=== PATIENT | female | born 1960 | race Caucasian/White ===

== ENCOUNTER 2024-04-28 16:18 | Inpatient (IN) | payer BC ==
--- NOTE | 2024-04-28 18:14 | RAD REPORT ---
EXAM:Extremity Venous Uni Ltd HISTORY: Leg pain TECHNIQUE: Sonographic evaluation right lower extremity performed.Grayscale, color and spectral francisco sis performed on all vessels COMPARISON: None. FINDINGS: Echogenic material consistent with acute thrombus is present within the left greater saphenous left p opliteal veins. Diminished blood flow veins are partially compressible Left common femoral, superficial femoral, greater and posterior tibial veins are compressible and dem onstrate augmentation. Doppler demonstrates good flow. IMPRESSION: Acute thrombus left greater saphenous and left popliteal veins
[2024-04-28 19:22] LABS: Absolute Basophils 0.1 K/uL (0-0.5); Absolute Eosinophils 0.1 K/uL (0-0.5); Absolute Lymphocytes (CBC) 2.1 K/uL (0.7-4.9); Absolute Monocytes 0.5 K/uL (0.1-1.3); Absolute Neutrophil 4.6 K/uL (1.8-8.0); Basophils % 1.1 % (0-1.3); Eosinophils % 1.9 % (0-4.4); Hematocrit 41.8 % (36.0-45.0); Lymphocytes % 28.7 % (15.3-44.8); MCH 30.5 pg (27.0-35.0); MCHC 33.6 g/dL (32.0-36.0); MCV 90.8 fL (80-100); Neutrophils % 61.3 % (41.7-73.7); Nucleated Red Blood Cells % 0.1 % (0-0); PT Prothrombin Time 11.5 SECONDS (9.4-12.5); Platelets 200 thou/uL (152-406); Protime INR 1.03; Red Cell Distribution Width 13.4 % (12.1-15.2)
[2024-04-28 19:40] LABS: ALT/SGPT 22 U/L (13-56); AST/SGOT 17 U/L (15-37); Albumin 4.1 g/dL (3.4-5.0); Albumin/Globulin Ratio 1.2 (1.1-1.8); Alkaline Phosphatase 97 U/L (45-117); Anion Gap 6.8 mEq/L (5.0-15.0); BUN Blood Urea Nitrogen 12 mg/dL (7-18); Bicarbonate 28 mEq/L (21-32); Bilirubin Total 0.5 mg/dL (0.2-1.0); Globulin 3.5 g/dL (2.3-3.5); Glomerular Filtration Rate 77 ml/min (=/>90); Glucose Level 92 mg/dL (74-106); Potassium 3.8 mEq/L (3.5-5.1); Protein, Total 7.6 g/dL (6.4-8.2); Sodium Level 139 mEq/L (136-145)
[2024-04-28 19:41] LABS: Bilirubin Direct < 0.2 mg/dL (0-0.2); Bilirubin Indirect, Calculated 0.3 mg/dL (0.2-0.8)
[2024-04-28 19:43] LABS: Troponin High Sensitivity 162.7 pg/mL (<58.9)
--- NOTE | 2024-04-28 20:46 | RAD REPORT ---
EXAMINATION: CTA CHEST PE CLINICAL INDICATION: Chest pain TECHNIQUE: 100 cc 370 Isovue administered intravenously. This examination was performed according to an angiographic protocol with 3D post-processing. This involves 3D reconstructions, MIPs, volume rendered images and/or shaded surface rendering. One or more of the following dose reduction techniqu es were used: Automated exposure control, adjustment of the mA and/or kV according to patient size, and/or iterative reconstruction. Unless otherwise specified, incidental findings do not require dedic ated imaging follow-up. [id number]. COMPARISON: No prior exam. FINDINGS: Thrombus is present within right upper lobe, right middle lobe and right lower lobe pulmonary arterie s. No thrombus seen within main pulmonary, right and left main pulmonary arteries. Minimal thrombus left lower lobe pulmonary artery. An aortic dissection not noted. No pleural effusion. No pericardial effusion. Lungs are clear. IMPRESSION: Predominantly right pulmonary emboli
--- NOTE | 2024-04-28 21:09 | ER ---
Nurse's Notes [facility] Name: Mary Santana Age: 64 yrs Sex: Female : 1960 Arrival Date: 04/28/2024 Time: 16:18 Bed 10 Private MD: Diagnosis: Acute embolism and thrombosis of unspecified deep veins of left lower extremity;Pulmonary embolism without acute cor pulmonale;Elevated troponin Presentation: 04/28 16:59 Chief complaint: Patient states: L leg tender, pain, red streak going up it since ll1 yesterday. No fever. Coronavirus screen: Client denies travel out of the [place] in the last 14 days. At this time, the client does not indicate any symptoms associated with coronavirus-19. Ebola Screen: Patient denies travel to an Ebola-affected area in the 21 days before illness onset. Initial Sepsis Screen: Does the patient meet any 2 criteria? No. Patient's initial sepsis screen is negative. Does the patient have a suspected source of infection? No. Patient's initial sepsis screen is negative. Risk Assessment: Do you want to hurt yourself or someone else? Patient reports no desire to harm self or others. Onset of symptoms was April 27, 2024. 16:59 Method Of Arrival: Ambulatory ll1 16:59 Acuity: BIPIN 3 ll1 Triage Assessment: 16:59 General: Appears uncomfortable, Behavior is calm, cooperative, appropriate for age. ll1 Pain: Complains of pain in left leg. Derm: Reports red streak going up L leg. Musculoskeletal: Reports pain in left leg. Musculoskeletal:. Historical: - Allergies: 16:58 Macrobid; ll1 16:58 Erythromycin; ll1 16:58 Levaquin; ll1 - PMHx: 16:58 Asthma; Hypertensive disorder; ll1 - PSHx: 16:59 R knee surgery; ll1 - Immunization history:: Adult Immunizations up to date. - Infectious Disease History:: Denies. - Social history:: Smoking status: Patient denies any tobacco usage or history of. Screenin:50 [facility] ED Fall Risk Assessment (Adult) History of falling in the last 3 months, ar6 including since admission No falls in past 3 months (0 pts) Confusion or Disorientation No (0 pts) Intoxicated or Sedated No (0 pts) Impaired Gait No (0 pts) Mobility Assist Device Used No (0 pt) Altered Elimination No (0 pt) Score/Fall Risk Level 0 - 2 = Low Risk Oriented to surroundings, Maintained a safe environment, Educated pt \T\ family on fall prevention, incl call for assistance when getting out of bed, Hourly rounding (assess needs \T\ fall precautionary measures) done. Abuse screen: Denies threats or abuse. Denies injuries from another. Nutritional screening: No deficits noted. Tuberculosis screening: No symptoms or risk factors identified. Assessment: 18:50 General: Appears in no apparent distress. uncomfortable, Behavior is calm, cooperative, ar6 appropriate for age. Pain: Complains of pain in left leg. Neuro: Level of Consciousness is awake, alert, obeys commands, Oriented to person, place, time, situation. Cardiovascular: Capillary refill < 3 seconds. Respiratory: Airway is patent. GI: Abdomen is round non-distended. : No signs and/or symptoms were reported regarding the genitourinary system. EENT: Oral mucosa is moist. Derm: Skin is intact, is healthy with good turgor, Skin is dry, Skin is pink, warm \T\ dry. Musculoskeletal: Swelling left knee swelling. Vital Signs: 16:59 BP 159 / 90; Pulse 79; Resp 17; Temp 97; Pulse Ox 98% ; Weight 106.59 kg; Height 6 ft. ll1 0 in. ; Pain 7/10; 18:50 BP 182 / 90; Pulse 70; Resp 18; Pulse Ox 98% on R/A; Weight 106.59 kg; Height 6 ft. 0 ar6 in. ; 21:59 BP 154 / 84; Pulse 72; Resp 18; Pulse Ox 99% on R/A; ar6 22:36 BP 146 / 82; Pulse 76; Resp 18; Pulse Ox 99% on R/A; ar6 18:50 Body Mass Index 31.87 (106.59 kg, 182.88 cm) ar6 16:59 Pain Scale: Adult ll1 18:50 provider at bedside ar6 ED Course: 16:21 Patient arrived in ED. ra3 16:25 Arm band placed on. ll1 16:58 [facility]C [facility]. kb 16:58 Lloyd Guillaume MD is Attending Physician. kb 17:00 Triage completed. ll1 18:09 US Extremity Venous Unilateral Ltd In Process Unspecified. EDMS 18:26 Chandrika Shipley, RN is Primary Nurse. ar6 18:50 No apparent distress. ar6 18:50 Patient has correct armband on for positive identification. Bed in low position. Call ar6 light in reach. Side rails up X 1. Provided Education on: plan of care. Client placed on continuous cardiac and pulse oximetry monitoring. NIBP monitoring applied. Door closed. Lights dimmed. Moved to private room. Warm blanket given. 18:50 No provider procedures requiring assistance completed. ar6 19:20 EKG done, by ED staff, reviewed by Kayla HERRING. oe 20:15 CT Chest For PE Angio In Process Unspecified. EDMS 21:06 Ptt, Activated Sent. ar6 21:08 Marcela Perry MD is Hospitalizing Provider. kb 23:39 Inserted saline lock: 22 gauge in left antecubital area, using aseptic technique. Blood vk collected. Flushed with 10 mL NS. Administered Medications: 21:47 Drug: Heparin (DVT/PE- Bolus per protocol) - HEParin IVP 80 units/kg IVP once; Max lg3 8,000 units {Co-Signature: arIsabelle (Chandrika Shipley RN).} Route: IVP; Site: right antecubital; 23:15 Follow up: Response: No adverse reaction ar6 21:47 Drug: Heparin (DVT/PE Drip) 18 units/kg/[place] - ([place] [address] units, D5W IV 500 ml) IV lg3 at calculated rate Per protocol; Max initial rate 1800 units/hr {Co-Signature: albertina (Chandrika Shipley RN).} Route: IV; Rate: calculated rate; Site: right antecubital; 23:15 Follow up: Response: No adverse reaction; IV Status: Infusion continued ar6 Medication: 18:50 VIS not applicable for this client. ar6 Outcome: 21:08 Decision to Hospitalize by Provider. kb 23:51 Patient left the ED. ar6 Signatures: Dispatcher [employer] EDMS Kayla Andino FNP-C FNP-Deejay Rocha Lacie, RN RN lg3 Gilmer Reddy RN RN ll1 Sultana Sims ra3 Marycarmen Ty Amber, RN RN ar6 Shipley, Chandrika RN ar6
--- NOTE | 2024-04-28 21:09 | EDPHYS ---
Physician Documentation [facility] Name: Mary Santana Age: 64 yrs Sex: Female : 1960 Arrival Date: 04/28/2024 Time: 16:18 Bed 10 Private MD: ED Physician Lloyd Guillaume HPI: 04/28 17:30 This 64 yrs old Female presents to ER via Ambulatory with complaints of left leg kb tenderness with redness. 17:30 Pt is a 64 year old female who presents with soreness, redness and swelling to left kb lower extremity. States she has been traveling in a car a lot recently. Denies shortness of breath. States the symptoms started yesterday and have progressed since onset. . Historical: - Allergies: 16:58 Macrobid; ll1 16:58 Erythromycin; ll1 16:58 Levaquin; ll1 - PMHx: 16:58 Asthma; Hypertensive disorder; ll1 - PSHx: 16:59 R knee surgery; ll1 - Immunization history:: Adult Immunizations up to date. - Infectious Disease History:: Denies. - Social history:: Smoking status: Patient denies any tobacco usage or history of. ROS: 17:30 Constitutional: As per HPI kb Exam: 17:30 Constitutional: This is a well developed, well nourished patient who is awake, alert, kb and in no acute distress. Head/Face: Normocephalic, atraumatic. ENT: Moist Mucous membranes Cardiovascular: Regular rate Respiratory: Respirations even and unlabored. No increased work of breathing. Talking in full sentences Abdomen/GI: Soft, non-tender. No distention Skin: Warm, dry with normal turgor. Normal color. Neuro: Awake and alert, GCS 15, oriented to person, place, time, and situation. 19:20 ECG was reviewed by the Attending Physician. kb Vital Signs: 16:59 BP 159 / 90; Pulse 79; Resp 17; Temp 97; Pulse Ox 98% ; Weight 106.59 kg; Height 6 ft. ll1 0 in. ; Pain 7/10; 18:50 BP 182 / 90; Pulse 70; Resp 18; Pulse Ox 98% on R/A; Weight 106.59 kg; Height 6 ft. 0 ar6 in. ; 21:59 BP 154 / 84; Pulse 72; Resp 18; Pulse Ox 99% on R/A; ar6 22:36 BP 146 / 82; Pulse 76; Resp 18; Pulse Ox 99% on R/A; ar6 18:50 Body Mass Index 31.87 (106.59 kg, 182.88 cm) ar6 16:59 Pain Scale: Adult ll1 18:50 provider at bedside ar6 MDM: 16:58 Medical Screening Exam initiated kb 17:31 Differential diagnosis: cellulitis, dvt, abscess, bakers cyst. Data reviewed: vital kb signs, nurses notes. 21:07 Consideration of Admission/Observation Patient was admitted/placed on observation. kb Escalation of care including admission/observation considered. Management of patient was discussed with the following: Hospitalist: Leandra HEEL ATTACHER accepts pt for admission. Counseling: I had a detailed discussion with the patient and/or guardian regarding the historical points, exam findings, and any diagnostic results supporting the discharge/admit diagnosis, lab results, radiology results, the need for further work-up and treatment in the hospital. 04/28 18:33 Order name: Basic Metabolic Panel; Complete Time: 19:50 kb 04/28 18:33 Order name: CBC with Diff; Complete Time: 19:26 kb 04/28 18:33 Order name: LFT's; Complete Time: 19:50 kb 04/28 18:33 Order name: PT-INR; Complete Time: 19:25 kb 04/28 18:33 Order name: Troponin HS; Complete Time: 19:50 kb 04/28 21:04 Order name: Ptt, Activated; Complete Time: 21:19 kb 04/28 23:08 Order name: CBC with Automated Diff EDMS 04/28 23:08 Order name: Comprehensive Metabolic Panel EDMS 04/28 23:08 Order name: Magnesium EDMS 04/28 23:08 Order name: Lipid Profile EDMS 04/28 23:08 Order name: Lipid Profile EDMS 04/28 23:08 Order name: Troponin High Sensitivity EDMS 04/28 23:08 Order name: Troponin High Sensitivity EDMS 04/28 23:08 Order name: Troponin High Sensitivity EDMS 04/28 23:08 Order name: Troponin High Sensitivity EDMS 04/28 17:02 Order name: US Extremity Venous Unilateral Ltd; Complete Time: 18:15 kb 04/28 18:33 Order name: CT Chest For PE Angio; Complete Time: 20:47 kb 04/28 23:09 Order name: Echo with Doppler EDMS 04/28 23:03 Order name: CONS Physician Consult EDMS 04/28 18:33 Order name: Cardiac monitoring; Complete Time: 18:50 kb 04/28 18:33 Order name: EKG - Nurse/Tech; Complete Time: 19:15 kb 04/28 18:33 Order name: IV Saline Lock; Complete Time: 18:50 kb 04/28 18:33 Order name: Labs collected and sent; Complete Time: 18:50 kb 04/28 18:33 Order name: O2 Sat Monitoring; Complete Time: 18:50 kb EC:20 Rate is 57 beats/min. Rhythm is regular. QRS [place] is Normal. [place] interval is normal at kb 166 msec. QRS interval is normal at 90 msec. QT interval is normal at 439 msec. Administered Medications: 21:47 Drug: Heparin (DVT/PE- Bolus per protocol) - HEParin IVP 80 units/kg IVP once; Max lg3 8,000 units {Co-Signature: albertina (Chandrika Shipley RN).} Route: IVP; Site: right antecubital; 23:15 Follow up: Response: No adverse reaction ar6 21:47 Drug: Heparin (DVT/PE Drip) 18 units/kg/[place] - ([place] [address] units, D5W IV 500 ml) IV lg3 at calculated rate Per protocol; Max initial rate 1800 units/hr {Co-Signature: arIsabelle (Chandrika Shipley RN).} Route: IV; Rate: calculated rate; Site: right antecubital; 23:15 Follow up: Response: No adverse reaction; IV Status: Infusion continued ar6 Disposition Summary: 04/28/24 21:08 Hospitalization Ordered Notes: Hospitalization Status: Observation kb Provider: Marcela Perry Location: Telemetry/MedSurg (observation) kb Condition: Stable kb Problem: new kb Symptoms: are unchanged kb Bed/Room Type: Standard Room Assignment: 411(04/28/24 22:34) lg3 Diagnosis - Acute embolism and thrombosis of unspecified deep veins of left lower extremity kb - Pulmonary embolism without acute cor pulmonale kb - Elevated troponin kb Forms: - Medication Reconciliation Form kb - SBAR form kb - Leadership Thank You Letter kb Addendum: 05/02/2024 19:57 Co-signature as Attending Physician, Lloyd Guillaume MD I reviewed the patient's care r t provided by the Advanced Practice Provider and agree with the diagnosis and treatment plan. Signatures: Dispatcher [employer] EDKayla Dunaway, COMPUTER PATTERNMAKER-C COMPUTER PATTERNMAKER-CkNuris Purcell, RN RN lg3 Gilmer Reddy, RN RN ll1 Lloyd Guillaume MD MD rt Chandrika Shipley RN RN ar6 Chandrika Shipley RN ar6 Corrections: (The following items were deleted from the chart) 04/28 18:33 18:33 BASIC METABOLIC PANEL+C.LAB.BRZ ordered. EDMS EDMS 18:33 18:33 CBC+H.LAB.BRZ ordered. EDMS EDMS 18:33 18:33 HEPATIC FUNCTION+C.LAB.BRZ ordered. EDMS EDMS 18:33 18:33 PROTIME (+INR)+COAG.LAB.BRZ ordered. EDMS EDMS 18:33 18:33 Troponin High Sensitivity+C.LAB.BRZ ordered. EDMS EDMS 22:34 21:08 kb lg3
[2024-04-28] MEDS ORDERED: HEPARIN 5000 UNIT/ML 1 ML VIAL ONE (21:17)
[2024-04-28] MEDS ORDERED: HEPARIN/D5W 25,000 UNIT/500 ML BAG IV ONE (21:18)
[2024-04-28] MEDS ORDERED: ACETAMINOPHEN 500 MG TAB PO PRN (23:02)
[2024-04-28] MEDS ORDERED: ONDANSETRON 4 MG/2 ML VIAL IV PRN (23:02)
[2024-04-28] MEDS ORDERED: MORPHINE 2 MG/ML SYR IV PRN (23:11)
--- NOTE | 2024-04-28 23:51 | P.HP ---
Certification for Inpatient Patient admitted to: Inpatient With expected LOS: <2 Midnights <Sarah Mobley - Last Filed: 04/29/24 07:27> Patient History Date of Service: 04/29/24 Reason for admission: Pulmonary embolism, left lower extremity DVT History of Present Illness: 64-year-old female with a past medical history hypertension, asthma, presents to the emergency room with left lower extremity pain. Reports left lower extremity edema, she reports driving in the car over 6 hours, she denies injury, no reported fall, no reported chest pain, shortness of breath, abdominal pain, ER evaluation cells left lower extremity DVT, CT of the chest Predominantly right pulmonary emboli, CT discussed with radiology, no reported right heart strain, admission discussed with Dr. Perry prior, plan to admit to ICU on a heparin drip, for NSTEMI, PE, left lower extremity DVT with cardiology consult. Laboratory evaluation troponin 162.7, 165.3 no leukocytosis, - Past Medical/Surgical History -: Hypertension -: Asthma -: Right knee surgery - Social History Smoking Status: Never smoker Alcohol use: No CD- Drugs: No Caffeine use: Yes Place of Residence: Home <Sarah Mobley - Last Filed: 04/29/24 07:27> Date of Service: 04/30/24 <Marcela Perry - Last Filed: 04/30/24 10:28> Allergies erythromycin base Allergy (Verified 04/29/24 01:04) Nausea/Vomiting levofloxacin [From Levaquin] Allergy (Verified 04/29/24 01:04) Itching/Hives/Rash nitrofurantoin [From Macrobid] Adverse Reaction (Verified 04/29/24 01:04) Nausea/Vomiting Home Medications: Amlodipine Besylate [Norvasc] 5 mg PO BEDTIME 04/29/24 Hydroxychloroquine [Plaquenil] 200 mg PO DAILY 04/29/24 Magnesium Oxide [Mag 0X Tab] 400 mg PO BID 04/29/24 Multivitamin [Hki-Rwryjz-Egtur] 1 each PO DAILY 04/29/24 Omeprazole [Prilosec] 40 mg PO BID 04/29/24 Review of Systems 10-point ROS is otherwise unremarkable General: As per HPI <Sarah Mobley - Last Filed: 04/29/24 07:27> Physical Examination - Physical Exam General: Alert, In no apparent distress, Oriented x3, Obese HEENT: Atraumatic, Normocephalic Neck: 2+ carotid pulse no bruit, JVD not distended Respiratory: Clear to auscultation bilaterally, Normal air movement Cardiovascular: Normal pulses, Regular rate/rhythm, Normal S1 S2 Capillary refill: <2 Seconds Gastrointestinal: Normal bowel sounds, Soft and benign Musculoskeletal: Other (Left lower extremity pain with ambulation) Integumentary: Other (Left lower extremity edema, erythema from DVT) Neurological: Normal speech, Normal strength at 5/5 x4 extr, Cranial nerves 3-12 intact - Studies Laboratory Data (last 24 hrs) 04/28/24 04/28/24 04/28/24 19:00 19:00 19:00 WBC 7.50 Hgb 14.0 Hct 41.8 Plt Count 200 PT 11.5 INR 1.03 APTT 35.1 Sodium Potassium BUN Creatinine Glucose Total Bilirubin AST ALT Alkaline Phosphatase 04/28/24 19:00 WBC Hgb Hct Plt Count PT INR APTT Sodium 139 Potassium 3.8 BUN 12 Creatinine 0.85 Glucose 92 Total Bilirubin 0.5 AST 17 ALT 22 Alkaline Phosphatase 97 <Sarah Mobley - Last Filed: 04/29/24 07:27> Assessment and Plan - Plan Assessment NSTEMI, Right lobe pulmonary embolus left lower extremity DVT plan to admit to ICU on a heparin drip, cardiology consult. ECHO ordered Laboratory evaluation troponin 162.7, 165.3 no leukocytosis, presents to the emergency room with left lower extremity pain. Reports left lower extremity edema, she reports driving in the car over 6 hours, she denies injury, no reported fall, no reported chest pain, shortness of breath, abdominal pain, ER evaluation cells left lower extremity DVT, CT of the chest Predominantly right pulmonary emboli, CT discussed with radiology, no reported right heart strain, admission discussed with hypertension asthma Resume appropriate home meds Rate is 57 beats/min. Rhythm is regular. QRS [place] is Normal. [place] interval is normal at 166 msec. QRS interval is normal at 90 msec. QT interval is normal at 439 msec. Full code DVT heparin drip Cardiac diet Disposition Home, independent prior Discharge Plan: Home - Advance Directives Does patient have a Living Will: No Does patient have a Durable POA for Healthcare: No - Code Status/Comfort Care Code Status: Full Code Critical Care: Yes Time Spent Managing Pts Care (In Minutes): 65 <Sarah Mobley - Last Filed: 04/29/24 07:27> Date of Service: 04/28/24 Patient was seen and examined. Events of the last 24 hours have been noted. Spoke with with CHITRA regarding patient's clinical picture after evaluating and examining the patient independently. I performed a substantial part of the MDM during this patient's care today. I personally made or approved the documented management plan and acknowledge its risk of complications. I agree with the findings and documentation provided in the CHITRA's notes. patient was found to have pulmonary embolism. Patient also with an elevated troponin. Continue with IV anticoagulation at this time will switch over to oral anticoagulant in the morning. Anticipate discharge over the next 24 hours. Hypercoagulable workup pending. Outpatient malignancy workup as well. Advised patient to make sure she gets preventive screening as well. <Marcela Perry - Last Filed: 04/30/24 10:28>
[2024-04-29 00:03] LABS: Absolute Basophils 0.1 K/uL (0-0.5); Absolute Eosinophils 0.2 K/uL (0-0.5); Absolute Lymphocytes (CBC) 2.5 K/uL (0.7-4.9); Absolute Monocytes 0.5 K/uL (0.1-1.3); Absolute Neutrophil 4.3 K/uL (1.8-8.0); Basophils % 0.8 % (0-1.3); Eosinophils % 2.1 % (0-4.4); Hematocrit 41.5 % (36.0-45.0); Hemoglobin 14.1 g/dL (12.0-15.0); Lymphocytes % 33.3 % (15.3-44.8); MCH 30.6 pg (27.0-35.0); MCHC 33.8 g/dL (32.0-36.0); MCV 90.6 fL (80-100); Monocytes % 6.4 % (3.3-12.3); Neutrophils % 57.4 % (41.7-73.7); Nucleated Red Blood Cells % 0.1 % (0-0); Platelets 212 thou/uL (152-406); RBC Red Blood Cell Count 4.59 M/uL (3.86-4.86); Red Cell Distribution Width 13.5 % (12.1-15.2)
[2024-04-29 00:16] LABS: Albumin 4.1 g/dL (3.4-5.0); Albumin/Globulin Ratio 1.2 (1.1-1.8); Anion Gap 8.4 mEq/L (5.0-15.0); Bilirubin Total 0.7 mg/dL (0.2-1.0); Globulin 3.5 g/dL (2.3-3.5); Magnesium 2.2 mg/dL (1.6-2.4); Potassium 3.4 mEq/L (3.5-5.1); Protein, Total 7.6 g/dL (6.4-8.2)
[2024-04-29 03:22] VITALS: BMI 31.8
[2024-04-29] MEDS: METOPROLOL TAR 25 MG TAB PO SCH (05:05)
[2024-04-29] MEDS: HYDROCODONE/APAP 5/325 MG TAB PO PRN (05:06)
[2024-04-29 08:39] LABS: Anion Gap 6.7 mEq/L (5.0-15.0); Phosphorus 3.7 mg/dL (2.5-4.9); Potassium 3.7 mEq/L (3.5-5.1)
[2024-04-29] MEDS: ASPIRIN EC 81 MG TAB PO SCH (09:15)
[2024-04-29] MEDS: FLU (Fluarix Triv) TS24-25(6MOS UP)/PF 45 MCG/0.5 ML Syringe IM ONE (09:17)
--- NOTE | 2024-04-29 10:36 | P.CNS ---
Date of Consult: 04/29/24 Chief Complaint: Pulmonary embolism, left lower extremity DVT History of Present Illness: Patient presented with lower extremity swelling, redness and pain that started after [address] trip, denies any other cardiac symptoms. Allergies erythromycin base Allergy (Verified 04/29/24 01:04) Nausea/Vomiting levofloxacin [From Levaquin] Allergy (Verified 04/29/24 01:04) Itching/Hives/Rash nitrofurantoin [From Macrobid] Adverse Reaction (Verified 04/29/24 01:04) Nausea/Vomiting Home medications list reviewed: Yes Home Medications: Amlodipine Besylate [Norvasc] 5 mg PO BEDTIME 04/29/24 Hydroxychloroquine [Plaquenil] 200 mg PO DAILY 04/29/24 Magnesium Oxide [Mag 0X Tab] 400 mg PO BID 04/29/24 Multivitamin [Fcs-Tcixzy-Alafg] 1 each PO DAILY 04/29/24 Omeprazole [Prilosec] 40 mg PO BID 04/29/24 - Past Medical/Surgical History Diabetic: No -: Hypertension -: Asthma -: HTN -: GERD -: Arthritis -: Degenerative disc L4-L5 -: Right knee surgery -: Tonsillectomy -: Rt meniscectomy -: myomectomy - Social History Alcohol use: No CD- Drugs: No Caffeine use: Yes Place of Residence: Home Review of Systems 10-point ROS is otherwise unremarkable Physical Examination Temp Pulse Resp BP Pulse Ox 98.0 F 61 16 123/72 98 04/29/24 08:00 04/29/24 08:00 04/29/24 08:00 04/29/24 08:00 04/29/24 08:00 General: Alert, In no apparent distress HEENT: Atraumatic, PERRLA, Mucous membr. moist/pink, EOMI, Sclerae nonicteric Neck: Supple, 2+ carotid pulse no bruit, No LAD, Without JVD or thyroid abnormality Respiratory: Clear to auscultation bilaterally, Normal air movement Cardiovascular: Regular rate/rhythm, Normal S1 S2 Gastrointestinal: Normal bowel sounds, No tenderness Musculoskeletal: No tenderness Integumentary: No rashes Neurological: Normal gait, Normal speech, Normal tone, Normal affect Lymphatics: No axilla or inguinal lymphadenopathy Laboratory Data (last 24 hrs) 04/28/24 04/28/24 04/28/24 19:00 19:00 19:00 WBC 7.50 Hgb 14.0 Hct 41.8 Plt Count 200 PT 11.5 INR 1.03 APTT 35.1 Sodium Potassium BUN Creatinine Glucose Total Bilirubin AST ALT Alkaline Phosphatase 04/28/24 19:00 WBC Hgb Hct Plt Count PT INR APTT Sodium 139 Potassium 3.8 BUN 12 Creatinine 0.85 Glucose 92 Total Bilirubin 0.5 AST 17 ALT 22 Alkaline Phosphatase 97 - Problems (1) Pulmonary embolism Current Visit: Yes Status: Acute Plan: start patient on Eliquis 10 mg po BID for 7 days then continue 5 mg po BID for 6 months (2) DVT (deep venous thrombosis) Current Visit: Yes Status: Acute Plan: triggered by long drive, in L great SV and L popliteal V, start Eliquis as above. patient says she had blood work up before to rule out and blood clotting disorders as he father had DVT in the past. outpatient follow up to repeat venous doppler in 6 months
--- NOTE | 2024-04-29 12:50 | EKG ---
Test Date: 2024-04-28 Test Time: 19:17:52 [place] Machine Operator: AMALIA MEASUREMENT RESULTS: Intervals: Rate: 57 LA: 166 QRSD: 90 QT: 452 QTc: 439 [place]: P: 60 LA: 166 QRS: 42 T: 55 INTERPRETIVE STATEMENTS: Sinus bradycardia Cannot rule out Anterior infarct, age undetermined Abnormal ECG No previous ECG available for comparison Electronically Signed On 04-29-24 12:48:52 CDT by Dilan Koehler
[2024-04-29] MEDS: POTASSIUM CL SA 10 MEQ TAB PO ONE ×2 (13:00→15:43)
--- NOTE | 2024-04-29 13:22 | ECHO ---
HEIGHT: 6 ft 0 in WEIGHT: 235 lb 0 oz DATE OF STUDY: 04/29/[address]: Sarah Mobley 2-DIMENSIONAL: YES M.MODE: YES DOPPLER: YES COLOR FLOW: YES TDS: NO PORTABLE: YES DEFINITY: NO BUBBLE STUDY: NO DIAGNOSIS: PULMONARY EMBOLISM, RULE OUT RIGHT VENTRICULAR STRAIN. CARDIAC HISTORY: CATHERIZATION: NO SURGERY: NO PROSTHETIC VALVE: NO PACEMAKER: NO MEASUREMENTS (cm) DIASTOLIC (NORMALS) SYSTOLIC (NORMALS) IVSd 1.1 (0.6-1.2) LA Diam 3.2 (1.9-4.0) LVEF 60-65% LVIDd 4.7 (3.5-5.7) LVIDs 3.5 (2.0-3.5) %FS 27% LVPWd 1.2 (0.6-1.2) Ao Diam 3.2 (2.0-3.7) 2 DIMENSIONAL ASSESSMENT: RIGHT ATRIUM: NORMAL LEFT ATRIUM: NORMAL RIGHT VENTRICLE: NORMAL LEFT VENTRICLE: NORMAL TRICUSPID VALVE: NORMAL MITRAL VALVE: NORMAL PULMONIC VALVE: NORMAL AORTIC VALVE: NORMAL PERICARDIAL EFFUSION: NONE AORTIC ROOT: NORMAL LEFT VENTRICULAR WALL MOTION: NORMAL. DOPPLER/COLOR FLOW: NORMAL. COMMENTS: 1. NORMAL LEFT VENTRICULAR SYSTOLIC FUNCTION. LEFT VENTRICULAR EJECTION FRACTION 60-65%. NORMAL WALL MOTION. 2. NORMAL RIGHT VENTRICLE SIZE AND FUNCTION. 3. NORMAL DIASTOLIC FUNCTION. TECHNOLOGIST: FIDEL CASTANO
[2024-04-29] MEDS: HEPARIN/D5W 25,000 UNIT/500 ML BAG IV SCH (20:09)
[2024-04-29] MEDS: ATORVASTATIN 40 MG TAB PO SCH (21:00)
[2024-04-29] MEDS: MAGNESIUM OXIDE 400 MG TAB PO SCH (21:00)
[2024-04-29] MEDS: AMLODIPINE 5 MG TAB PO SCH (21:41)
[2024-04-30 07:35] LABS: Anion Gap 8.1 mEq/L (5.0-15.0); Potassium 4.1 mEq/L (3.5-5.1)
[2024-04-30] MEDS: PANTOPRAZOLE 40MG TABLET PO SCH (09:26)
[2024-04-30] MEDS: MULTIVITAMIN TAB PO SCH (09:26)
[2024-04-30 10:33] VITALS: O2SAT 97
--- NOTE | 2024-04-30 10:34 | P.PN ---
Date of Service: 04/29/24 Subjective Patient is doing better. Respiratory status is improved. Multiple questions about her blood clot and possible lobectomy for a CT. These were explained to her the best my ability and she understood that the best course of action at this point is to proceed with anticoagulation at discharge. Echocardiogram pending. Physical Examination - Vitals Reviewed = Physical Exam General: Alert, In no apparent distress, Oriented x3, Obese Respiratory: Clear to auscultation bilaterally, Normal air movement Cardiovascular: Normal pulses, Regular rate/rhythm, Normal S1 S2 Gastrointestinal: Normal bowel sounds, Soft and benign Musculoskeletal: Other (Left lower extremity pain with ambulation) Integumentary: Other (Left lower extremity edema, erythema from DVT) Neurological: no focal deficits Assessment and Plan - Assessment/Plan Assessment/Plan NSTEMI, Right lobe pulmonary embolus left lower extremity DVT continue with anticoagulation switched over to oral anticoagulants at this time. Workup pending. Preventive screening for malignancy as well as an outpatient hypertension asthma continue antihypertensives and inhaler therapy as outpatient Full code DVT heparin drip Cardiac diet Disposition Home, independent prior Discharge Plan: Home - Advance Directives Does patient have a Living Will: No Does patient have a Durable POA for Healthcare: No
[2024-04-30] MEDS: APIXABAN 5 MG TABLET PO ONE (10:52)
[2024-04-30 12:36] VITALS: BP 117/55; TEMP 98.1
--- NOTE | 2024-04-30 12:47 | P.DS ---
Admission Date: 04/28/24 Discharge Date: 04/30/24 Disposition: ROUTINE DISCHARGE Discharge Condition: GOOD Reason for Admission: Pulmonary embolism, left lower extremity DVT Brief History of Present Illness: 64-year-old female with a past medical history hypertension, asthma, presents to the emergency room with left lower extremity pain. Reports left lower extremity edema, she reports driving in the car over 6 hours, she denies injury, no reported fall, no reported chest pain, shortness of breath, abdominal pain, ER evaluation cells left lower extremity DVT, CT of the chest Predominantly right pulmonary emboli, CT discussed with radiology, no reported right heart strain, admission discussed with Dr. Perry prior, plan to admit to ICU on a heparin drip, for NSTEMI, PE, left lower extremity DVT with cardiology consult. Laboratory evaluation troponin 162.7, 165.3 no leukocytosis, Hospital Course: Pt is a 64-year-old female with a past medical history hypertension and asthma who presented in the emergency room with left lower extremity pain / edema. Of note, pt just completed a [address] trip[address] On admission, CT chest showed pulmonary embolism without RV strain and doppler ultrasound showed DVT in the left great SV and Left popliteal Vein. Lab studies showed elevated troponin (162.7 <- 165.3), likely due to DVT. We started heparin drip and consulted Cardiology. Cardiology evaluated pt and recommended Eliquis for at least 6 months. Echo did not shoe any RV strain. We switched pt to Eliquis 10mg po BID for 1 week before continuing Eliquis 5mg po BID for at least 3 - 6 months. She will follow up with PCP and Hematology for further blood clotting disorder work up. Pt was in NAD prior to discharge. Vital Signs/Physical Exam: Temp Pulse Resp BP Pulse Ox 98.1 F 68 14 117/55 L 93 04/30/24 12:00 04/30/24 12:00 04/30/24 12:00 04/30/24 12:00 04/30/24 12:00 Laboratory Data at Discharge: WBC 7.40 thou/uL (4.3-10.9) 04/28/24 23:36 Hgb 14.1 g/dL (12.0-15.0) 04/28/24 23:36 Hct 41.5 % (36.0-45.0) 04/28/24 23:36 Plt Count 212 thou/uL (152-406) 04/28/24 23:36 PT 11.5 SECONDS (9.4-12.5) 04/28/24 19:00 INR 1.03 04/28/24 19:00 APTT Cancelled 04/30/24 12:30 Sodium 140 mEq/L (136-145) 04/30/24 07:14 Potassium 4.1 mEq/L (3.5-5.1) 04/30/24 07:14 BUN 16 mg/dL (7-18) 04/30/24 07:14 Creatinine 0.83 mg/dL (0.55-1.02) 04/30/24 07:14 Glucose 96 mg/dL (74-106) 04/30/24 07:14 Phosphorus 3.7 mg/dL (2.5-4.9) 04/29/24 07:54 Magnesium 2.2 mg/dL (1.6-2.4) 04/28/24 23:36 Total Bilirubin 0.7 mg/dL (0.2-1.0) 04/28/24 23:36 AST 13 U/L (15-37) L 04/28/24 23:36 ALT 23 U/L (13-56) 04/28/24 23:36 Alkaline Phosphatase 93 U/L (45-117) 04/28/24 23:36 Triglycerides 65 mg/dL (<150) 04/29/24 07:54 Cholesterol 195 mg/dL (<200) 04/29/24 07:54 HDL Cholesterol 63 mg/dL (40-60) H 04/29/24 07:54 Cholesterol/HDL Ratio 3.10 04/29/24 07:54 Home Medications: Amlodipine Besylate [Norvasc] 5 mg PO BEDTIME 04/29/24 Hydroxychloroquine [Plaquenil*] 200 mg PO DAILY 04/29/24 Magnesium Oxide [Mag 0X*] 400 mg PO BID 04/29/24 Multivitamin [Mpf-Vwayyv-Kantx] 1 each PO DAILY 04/29/24 Omeprazole [Prilosec] 40 mg PO BID 04/29/24 Apixaban [Eliquis] 5 mg PO BID 90 Days #180 tab 04/30/24 Hydrocodone 5/APAP 325 [[place] 5/325*] 1 tab PO Q4H PRN 3 Days #18 tab 04/30/24 New Medications: Apixaban [Eliquis] 5 mg PO BID 90 Days #180 tab Hydrocodone 5/APAP 325 [[place] 5/325*] 1 tab PO Q4H PRN 3 Days #18 tab PRN Reason: Pain Scale 5-7 (Moderate) Physician Discharge Instructions: Continue ad sandi activity as tolerated. Take Eliquis 10mg po BID for 1 week, then continue Eliquis 5mg po BID for at least 3 - 6 months. Repeat doppler ultrasound in 6 months. Follow up with PCP and Hematology with 1 - 2 weeks Diet: AHA Activity: Ad sandi Followup: Tenzin Pinon MD [Primary Care Provider] -
--- NOTE | 2024-04-30 13:35 | P.PN ---
Subjective Date of Service: 04/30/24 Chief Complaint: Pulmonary embolism, left lower extremity DVT Subjective: No new changes, No C/O voiced, Tolerating diet, Ambulating, Improving Review of Systems 10-point ROS is otherwise unremarkable Physical Examination - Vital Signs Temperature: 98.1 F Blood Pressure: 117/55 Pulse: 68 Respirations: 14 Pulse Ox (%): 93 - Physical Exam General: Alert, In no apparent distress HEENT: Atraumatic, PERRLA, EOMI Neck: Supple, JVD not distended Respiratory: Clear to auscultation bilaterally, Normal air movement Cardiovascular: Regular rate/rhythm, Normal S1 S2 Gastrointestinal: Normal bowel sounds, No tenderness Musculoskeletal: No tenderness Integumentary: No rashes Neurological: Normal speech, Normal tone, Normal affect Lymphatics: No axilla or inguinal lymphadenopathy - Studies Medications List Reviewed: Yes Assessment And Plan - Current Problems (Diagnosis) (1) Pulmonary embolism Current Visit: Yes Status: Acute Plan: Eliquis 10 mg po BID for 7 days then continue 5 mg po BID for 6 months (2) DVT (deep venous thrombosis) Current Visit: Yes Status: Acute Plan: triggered by long drive, in L great SV and L popliteal V, start Eliquis as above. patient says she had blood work up before to rule out and blood clotting disorders as he father had DVT in the past. outpatient follow up to repeat venous doppler in 6 months (3) HTN (hypertension) Current Visit: Yes Status: Acute Plan: metoprolol 12.5 mg bid norvasc 5 mg daily
[2024-04-30] MEDS ORDERED: APIXABAN 5 MG TABLET PO SCH (21:00)
[2024-05-01 21:00] LABS: C-ANCA Anti-Proteinase 3 <1.0 AI (<1.0); P-ANCA Anti-Myeloperoxidase Ab <1.0 AI (<1.0)
[2024-05-02 02:32] LABS: Abnormal Protein Band 1 REPORT; Alpha-1-Globulins 0.3 g/dL (0.2-0.3); Alpha-2-Globulins 0.7 g/dL (0.5-0.9); Beta 1 Globulin 0.4 g/dL (0.4-0.6); Gamma Globulins 0.8 g/dL (0.8-1.7); INTERPRETATION REPORT; Total Protein 6.3 g/dL (6.1-8.1)
[2024-05-02 04:59] LABS: Anti-Thrombin III Activity 88 % normal (80-135)
[2024-05-02 10:27] LABS: Protein C Antigen 103 % normal (70-140)
[2024-05-02 17:40] LABS: Homocysteine 13.6 umol/L (<10.4)
[2024-05-04 04:01] LABS: Anti-Cardiolipin IgM Antibody 9.6 MPL-U/mL (<20.0); Beta-2-Glycoprotein I IgA <2.0 U/mL (<20.0); Beta-2-Glycoprotein I IgG <2.0 U/mL (<20.0); Beta-2-Glycoprotein I IgM 7.1 U/mL (<20.0)
== END 2024-04-30 14:33 | disposition home or self-care (01) | DRG 280 ==
LOC: ER 16:18 → 4TH 23:00
PROVIDERS: ADMIT Hospitalist; ATTEND Hospitalist
DX: I21.4 Non-ST elevation (NSTEMI) myocardial infarction (principal); I26.99 Other pulmonary embolism without acute cor pulmonale; I82.432 Acute embolism and thrombosis of left popliteal vein; I10 Essential (primary) hypertension; E66.9 Obesity, unspecified; K21.9 Gastro-esophageal reflux disease without esophagitis; J45.909 Unspecified asthma, uncomplicated; Z88.1 Allergy status to other antibiotic agents; Z68.31 Body mass index [BMI] 31.0-31.9, adult; Z79.01 Long term (current) use of anticoagulants; Z79.899 Other long term (current) drug therapy
CPT/HCPCS: 36415; 71275; 80048; 80053; 80061; 80076; 81240; 81241; 82607; 83090; 83516; 83735; 84100; 84165; 84484; 85025; 85300; 85302; 85305; 85306; 85610; 85730; 86021; 86146; 86147; 93005; 93306; 93971; 96365; 99285; J1644; J2270; Q9967